=== PATIENT | female | born 1955 | race Caucasian/White ===

== ENCOUNTER 2017-05-03 12:13 | Emergency (ER) | payer BC ==
[~2017-05-03] VITALS: Ht 154.9 cm; Wt 80.7 kg
[2017-05-03 12:20] VITALS: Ht 154.9 cm; Wt 80.7 kg
[2017-05-03 14:27] VITALS: BP 121/69
== END 2017-05-03 14:55 | disposition home or self-care (01) ==
LOC: ED 12:13 → EDBD 12:13 → ED 14:55
DX: H11.32 Conjunctival hemorrhage, left eye (principal); E78.00 Pure hypercholesterolemia, unspecified; I25.10 Atherosclerotic heart disease of native coronary artery without angina pectoris; M19.90 Unspecified osteoarthritis, unspecified site

== ENCOUNTER 2020-01-24 10:15 | Emergency (ER) | payer MEDICARE, SELFPAY ==
[~2020-01-24] VITALS: Ht 154.9 cm; Wt 81.6 kg
[2020-01-24 10:16] VITALS: BP 139/78; Ht 154.9 cm; Wt 81.6 kg
== END 2020-01-24 12:35 | disposition home or self-care (01) ==
LOC: ED 10:15
DX: U07.1 COVID-19 (principal); J12.89 Other viral pneumonia; E78.00 Pure hypercholesterolemia, unspecified; M19.90 Unspecified osteoarthritis, unspecified site
CPT/HCPCS: U0003

== ENCOUNTER 2020-04-30 12:02 | Emergency (ER) | payer MEDICARE ==
[~2020-04-30] VITALS: Ht 152.4 cm; Wt 83.0 kg
[2020-04-30 12:22] VITALS: BP 138/65; Ht 152.4 cm; Wt 83.0 kg
[2020-04-30] MEDS ORDERED: PREDNISONE50 MG PO (12:39)
[2020-04-30] MEDS ORDERED: ZYRTEC ALLERGY10 MG PO (12:42)
== END 2020-04-30 12:57 | disposition home or self-care (01) ==
LOC: ED 12:02
DX: T80.62XA Other serum reaction due to vaccination, initial encounter (principal); L25.8 Unspecified contact dermatitis due to other agents; T50.Z95A Adverse effect of other vaccines and biological substances, initial encounter; E78.00 Pure hypercholesterolemia, unspecified; M19.90 Unspecified osteoarthritis, unspecified site; Y92.89 Other specified places as the place of occurrence of the external cause